=== PATIENT | female | born 1995 | race Caucasian/White ===

== ENCOUNTER → 2018-09-18 | Outpatient (CLI) | payer BC ==
[2018-09-18 09:26] LABS: EOS # 0.2 (0.04-0.40); HEMATOCRIT 37.6 % (37.0-47.0); HEMOGLOBIN 12.2 g/dL (12.5-16.0); LYMPH# 1.2 (1.50-4.00); MEAN CELL VOLUME 85 fl (78-100); MEAN CORPUSCULAR HEMOGLOBIN 27 pg (27-31); MEAN CORPUSCULAR HGB CONC 32 g/dL (33-37); MONO # 0.2 (0.20-0.80); NEU # 2.4 (1.40-6.50); PLATELET COUNT 236 K/mm3 (130-400); RED BLOOD COUNT 4.45 M/mm3 (4.10-5.30)
[2018-09-18 09:57] LABS: ALBUMIN 4.5 g/dL (3.5-5.0); CALCIUM 9.5 mg/dL (8.4-10.2); POTASSIUM 4.3 mmol/L (3.6-5.0); TOTAL BILIRUBIN 0.8 mg/dL (0.2-1.3); TOTAL PROTEIN 7.6 g/dL (6.3-8.2)
== END ==
LOC: LAB 09:12
PROVIDERS: Family Medicine
DX: Z01.419 Encounter for gynecological examination (general) (routine) without abnormal findings (principal)

== ENCOUNTER → 2021-01-06 | Outpatient (CLI) | payer BC ==
[~2021-01-06] MED LIST: MACROBID 100 M100 MG PO
[2021-01-06 12:10] LABS: EOS # 0.2 (0.04-0.40); EOS % 3.7 % (1.0-5.0); HEMATOCRIT 40.7 % (37.0-47.0); HEMOGLOBIN 13.5 g/dL (12.5-16.0); LYMPH# 1.4 (1.50-4.00); MEAN CELL VOLUME 86 fl (78-100); MEAN CORPUSCULAR HEMOGLOBIN 29 pg (27-31); MEAN CORPUSCULAR HGB CONC 33 g/dL (33-37); MEAN PLATELET VOLUME 9.9 fl (7.4-10.4); MONO # 0.3 (0.20-0.80); NEU # 2.2 (1.40-6.50); PLATELET COUNT 256 K/mm3 (130-400); RED BLOOD COUNT 4.74 M/mm3 (4.10-5.30); RED CELL DISTRIBUTION WIDTH 13.1 % (11.5-14.5)
[2021-01-06 12:17] LABS: ALBUMIN 4.2 g/dL (3.5-5.0); POTASSIUM 4.8 mmol/L (3.5-5.1)
[2021-01-06 12:18] LABS: CALCIUM 9.3 mg/dL (8.3-10.5)
[2021-01-06 12:19] LABS: TOTAL PROTEIN 7.2 g/dL (6.4-8.3)
[2021-01-06 12:21] LABS: TOTAL BILIRUBIN 1.3 mg/dL (0.2-1.2)
[2021-01-06 22:34] LABS: FOLLICLE STIMULATING HORMONE 7.2 mIU/mL (()); LUTENIZING HORMONE 4.3 mIU/mL (()); PROGESTERONE 0.1 ng/mL (())
== END ==
LOC: LAB 11:49
PROVIDERS: Family Medicine
DX: Z00.00 Encounter for general adult medical examination without abnormal findings (principal); E78.5 Hyperlipidemia, unspecified; R53.83 Other fatigue; N91.2 Amenorrhea, unspecified

== ENCOUNTER 2021-02-19 18:24 | Emergency (ER) | payer BC ==
[2021-02-19 19:36] LABS: URINE APPEARANCE CLOUDY; URINE BILIRUBIN NEGATIVE (NEGATIVE); URINE COLOR PINK; URINE GLUCOSE NEGATIVE (NEGATIVE); URINE KETONE 2+ (NEGATIVE); URINE NITRATE NEGATIVE (NEGATIVE); URINE PROTEIN(semi-quant) 2+ mg/dL (NEGATIVE); URINE UROBILINOGEN NORMAL (NORMAL)
[2021-02-19 19:37] LABS: URINE BLOOD 250 ery/uL (NEGATIVE); URINE LEUKOCYTE ESTERASE 2+ (NEGATIVE); URINE WBC >50 /hpf (0-3)
[2021-02-19] MEDS ORDERED: MACROBID 100 M100 MG PO (19:51)
[2021-02-19 19:56] VITALS: BP 110/75
== END 2021-02-19 19:56 | disposition home or self-care (01) ==
LOC: ED 18:24
PROVIDERS: Nurse Practitioner Family
DX: N30.01 Acute cystitis with hematuria (principal)

== ENCOUNTER → 2022-01-29 | Outpatient (CLI) | payer BC | LOC: LAB 13:41 | DX: J02.9 Acute pharyngitis, unspecified (principal) ==

== ENCOUNTER → 2022-02-03 | Outpatient (CLI) | payer BC ==
[2022-02-03 11:01] LABS: HEMATOCRIT 39.3 % (37.0-47.0); HEMOGLOBIN 12.8 g/dL (12.5-16.0); MEAN CELL VOLUME 88 fl (78-100); MEAN CORPUSCULAR HEMOGLOBIN 29 pg (27-31); MEAN CORPUSCULAR HGB CONC 33 g/dL (33-37); MEAN PLATELET VOLUME 9.6 fl (7.4-10.4); PLATELET COUNT 150 K/mm3 (130-400); RED BLOOD COUNT 4.48 M/mm3 (4.10-5.30); WHITE BLOOD COUNT 7.1 K/mm3 (4.8-10.8)
[2022-02-03 11:09] LABS: ALBUMIN 3.8 g/dL (3.5-5.0)
[2022-02-03 11:12] LABS: TOTAL PROTEIN 6.9 g/dL (6.4-8.3)
[2022-02-03 11:14] LABS: TOTAL BILIRUBIN 0.8 mg/dL (0.2-1.2)
[2022-02-03 11:31] LABS: MONOCYTE 2 % (3-10); NEUTROPHILS 28 % (42-75)
[2022-02-03 11:32] LABS: LYMPHOCYTE 68 % (20-51)
== END ==
LOC: LAB 10:33
PROVIDERS: Nurse Practitioner
DX: J30.9 Allergic rhinitis, unspecified (principal); J02.9 Acute pharyngitis, unspecified; E03.4 Atrophy of thyroid (acquired); I10 Essential (primary) hypertension; E78.2 Mixed hyperlipidemia; E66.9 Obesity, unspecified; M19.90 Unspecified osteoarthritis, unspecified site; M85.80 Other specified disorders of bone density and structure, unspecified site; G25.81 Restless legs syndrome; K76.0 Fatty (change of) liver, not elsewhere classified; E55.9 Vitamin D deficiency, unspecified; R73.03 Prediabetes; R30.9 Painful micturition, unspecified